=== PATIENT | female | born 1935 | race Caucasian/White ===

== ENCOUNTER 2016-08-03 21:09 | Inpatient (IN) | payer OTHER ==
--- NOTE | 2016-08-03 21:13 | PDOC ---
History of Present Illness - General History Source: Patient, Family Exam Limitations: No Limitations <Ynes Carrera - Last Filed: 08/04/16 00:51> - General History Source: Patient, Family Exam Limitations: Other - History of Present Illness Initial Comments: 08/03/16 21:42 The patient is a 81 year old female living at home with daughter, with a significant past medical history of dementia hemorrhoids, diverticulosis, rectal bleeds, and prolapsed uterus, who presents to the emergency department complaining s/p mechanical fall at approximately 10:30 this morning. Patients daughter reports she was downstairs in their home, when suddenly she heard a thump, which sounded like something had fallen. Daughter reports going upstairs and finding patient on the floor. Daughter asked patient what happened, at which point she said I fell. Patient did not report any head trauma or LOC. Daughter states she offered her mother assistance to get up from the floor, but the patient refused her at least 3 times. Daughter reports leaving at this time , because she thought the patient would get up on her own. When daughter returned at approximately 19:00 the patient was still on the ground, but had reversed her direction on the floor. At this time the daughter called their neighbors, who suggested calling EMS. Daughter states the patient has been increasingly sleepy, cold, and no longer wants to speak indonesian. She reports the patient was at an all day prayer yesterday and did not exhibit any symptoms of sleepiness of lethargy. She reports the patient is typically able to ambulate on her own, however, during the last 3 days she has noticed some leg swelling. The patient denies any chest pain, shortness of breath, diaphoresis, or palpitations. Daughter reports increased frequency, but denies dysuria or hematuria. The patient denies any fever, cough, headache, or dizziness. The patient denies any nausea, vomiting, diarrhea, or constipation. The patient denies any recent travel or sick contacts. Allergies: NKDA Past Surgical History: Appendectomy Social History: Non-smoker. Denies alcohol or drug use. PCP: Dr. Lyons <David Tineo - Last Filed: 08/04/16 01:28> - General Chief Complaint: Injury Stated Complaint: FALL Time Seen by Provider: 08/03/16 21:12 Past History - Surgical History Appendectomy: Yes Cholecystectomy: Yes - Psycho/Social/Smoking Cessation Hx Anxiety: No Suicidal Ideation: No Smoking Status: No Smoking History: Never smoked Number of Cigarettes Smoked Daily: 0 Hx Alcohol Use: No <Ynes Carrera - Last Filed: 08/04/16 00:51> <David Tineo - Last Filed: 08/04/16 01:28> - Past Medical History Allergies/Adverse Reactions: Allergies Allergy/AdvReac Type Severity Reaction Status Date / Time No Known Allergies Allergy Verified 08/03/16 21:25 Home Medications: Ambulatory Orders NK [No Known Home Medication] 03/31/14 Review of Systems - Review of Systems Able to Perform ROS?: Yes Comments:: 08/03/16 21:43 GENERAL/CONSTITUTIONAL: Yes: +Chills, +weakness, +sleepy. No: fever, loss of appetite. HEAD, EYES, EARS, NOSE AND THROAT: No: change in vision, ear pain, discharge, sore throat, throat swelling. CARDIOVASCULAR: No: chest pain, lightheadedness, palpitations, syncope RESPIRATORY: No: cough, shortness of breath, wheezing, hemoptysis, stridor. GASTROINTESTINAL: No: nausea, vomiting, abdominal cramping, diarrhea, rectal bleeding, constipation. GENITOURINARY: Yes: +Frequency. No: dysuria, hematuria, urgency, flank pain. MUSCULOSKELETAL: Yes: +leg swelling. No: back pain, neck pain, joint pain. SKIN AND BREASTS: No: lesions, pallor, rash or easy bruising. NEUROLOGIC: No: headache, vertigo, paresthesias ENDOCRINE: No: unexplained weight gain or loss HEMATOLOGIC/LYMPHATIC: No: anemia, easy bleeding, swelling nodes <David Tineo - Last Filed: 08/04/16 01:28> *Physical Exam - Vital Signs Last Vital Signs Temp Pulse Resp BP Pulse Ox 98 F 72 16 168/83 98 08/03/16 21:12 08/03/16 21:12 08/03/16 21:12 08/03/16 21:12 08/03/16 21:12 - Physical Exam Comments: 08/03/16 21:31 GENERAL: Alert and Oriented x1. Sleepy HEAD: Normal with no signs of trauma. EYES: Left pupil 2mm. Right pupil 1 mm. EOMI, sclera anicteric, conjunctiva clear. ENT: Ears normal, nares patent, oropharynx clear without exudates. Moist mucous membranes. NECK: Normal range of motion, supple without lymphadenopathy, JVD, or masses. LUNGS: Breath sounds equal, clear to auscultation bilaterally. No wheezes, and no crackles. HEART: Regular rate and rhythm, normal S1 and S2 without murmur, rub or gallop. ABDOMEN: Soft, nontender, normoactive bowel sounds. No guarding, no rebound. PELVIC: Uterine prolapse. EXTREMITIES: Normal range of motion, no edema. No clubbing or cyanosis. No erythema, or tenderness. NEUROLOGICAL: Cranial nerves II through XII grossly intact. Normal speech. No focal neurological deficits. MUSCULOSKELETAL: Left hip tenderness. No CVA tenderness, no midline cervical spine tenderness. SKIN: Warm, Dry, normal turgor, no rashes or lesions noted. <David Tineo - Last Filed: 08/04/16 01:28> Heart Score/ECG Review #1 ECG reviewed & interpreted by me at: 00:07 08/04/16 00:07 Twelve-lead EKG was performed and reviewed by me. Junctional, rate of 69 bpm. The axis is normal. The intervals are normal - QRS:76ms, QTc:430ms. There are no ST or T wave abnormalities. <Ynes Carrera - Last Filed: 08/04/16 00:51> ED Treatment Course - LABORATORY CBC & Chemistry Diagram: 08/03/16 21:39 08/03/16 21:39 <Ynes Carrera - Last Filed: 08/04/16 00:51> - LABORATORY CBC & Chemistry Diagram: 08/03/16 21:39 08/03/16 21:39 - RADIOLOGY Radiograph Interpretation: 08/03/16 23:49 EXAM: Head CT INTERPRETED BY: Dr. Barcenas REVIEWED BY: Dr. Carrera IMPRESSION: Age related involutional changes. Chronic microvascular changes in the cerebral white matter. No hemorrhage. No mass. No visible acute infarct Osseous structures are intact. EXAM: CT Cervical spine INTERPRETED BY: Dr. Barcenas REVIEWED BY: Dr. Carrera IMPRESSION: Degenerative changes. Negative for cervical fracture or malalignment. EXAM: X-Ray hip and pelvis INTERPRETED BY: Dr. Ferrer REVIEWED BY: Dr. Carrera IMPRESSION: Osteopenia is noted. No fractures are seen in the visualized femur or acetabulum. 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 No other pelvic fracture is identified. Calcified fibroids are noted <David Tineo - Last Filed: 08/04/16 01:28> Medical Decision Making - Medical Decision Making 08/03/16 21:13 A portion of this note was documented by scribe services under my direction. I have reviewed the details of the note, within reason, and agree with the documentation with the following case summary and management plan written by me. Nursing documentation reviewed and incorporated into medical decision making 08/03/16 22:23 This is a relatively healthy 81-year-old female presents emergency department by EMS status post a fall at home. Patient is typically ambulatory, lives with her daughter at home. This morning at approximately 10 or 10:30 she had an unwitnessed fall onto the ground. Patient's daughter attempted 3 times to pick her up but was unsuccessful. She left the house at approximately 7 PM and when she returned later in the evening she found her mom still on the ground. She called for assistance from her neighbors who did not feel comfortable picking her up and told her to call EMS. On examination: Pt A&O x 1 Pt is somnolent. Arousable to questioning but does not answer clearly Pain with movement of bother the left and right hips (she is unable to do so independently) RRR Lungs are clear Laboratory Tests 08/03/16 08/03/16 21:39 21:39 WBC 10.7 H D Hgb 11.6 Hct 35.8 Plt Count 307 Neutrophils % 76.2 Lymphocytes % 13.2 D Urine Blood 1+ H Urine Nitrite Negative Ur Leukocyte Esterase Negative (UA obtained via straight cath) 08/03/16 22:50 Laboratory Tests 08/03/16 21:39 Sodium 144 Potassium 4.7 Chloride 109 H Carbon Dioxide 27 Creatinine 1.5 H D Random Glucose 98 Creatine Kinase 227 H Troponin I < 0.02 08/04/16 00:51 CT: Head negative Cervical spine CT: Negative X-rays hip negative for fracture Upon reassessment, patient very somnolent. Patient awakens briefly with verbal stimulation but then falls back asleep. Per daughter this is not normal for her. Case reviewed with Dr. Yanez. Will place on T-VIPS. <Ynes Carrera - Last Filed: 08/04/16 00:51> - Medical Decision Making 08/03/16 23:58 First call placed to Dr. Ynaez at 23:58. Awaiting call back. Second call placed to Dr. Yanez at 00:33. Awaiting call back. Case discussed with Dr. Yanez at 00:46. <David Tineo - Last Filed: 08/04/16 01:28> *DC/Admit/Observation/Transfer - Discharge Dispostion Admit: Yes <Ynes Carrera - Last Filed: 08/04/16 00:51> <David Tineo - Last Filed: 08/04/16 01:28> Diagnosis at time of Disposition: Weakness, Somnolence Fall Qualifiers: Encounter type: initial encounter Qualified Code(s): W19.XXXA - Unspecified fall, initial encounter - Discharge Dispostion Condition at time of disposition: Stable - Referrals Referrals: Daniel Lyons MD [Primary Care Provider] -
[2016-08-03 22:06] LABS: BASOPHIL 0.8 % (0-2.0); EOSINOPHIL 0.9 % (0-4.5); MCH 25.7 pg (25.7-33.7); MCHC 32.5 g/dl (32.0-36.0); MEAN CELL VOLUME 79.3 fl (80-96); MEAN PLT VOLUME 9.2 fl (7.5-11.1); NEUTROPHILS 76.2 % (42.8-82.8); PLATELET COUNT 307 K/MM3 (134-434); RDW 14.6 % (11.6-15.6); WHITE BLOOD COUNT 10.7 K/mm3 (4.0-10.0)
[2016-08-03 22:08] LABS: URINE APPEARANCE CLEAR; URINE BILIRUBIN NEGATIVE (NEGATIVE); URINE COLOR STRAW; URINE GLUCOSE (UA) NEGATIVE (NEGATIVE); URINE KETONE NEGATIVE (NEGATIVE); URINE LEUK ESTERASE NEGATIVE (NEGATIVE); URINE NITRITE NEGATIVE (NEGATIVE); URINE PROTEIN NEGATIVE (NEGATIVE); URINE UROBILINOGEN NEGATIVE E.U./dl (0.2-1.0)
[2016-08-03 22:09] LABS: URINE BLOOD 1+ (NEGATIVE)
[2016-08-03 22:10] LABS: URINE MUCUS RARE; URINE RBC 1 /hpf (0-3); URINE WBC 2 /hpf (3-5)
[2016-08-03 22:36] LABS: ALBUMIN 3.9 g/dl (3.4-5.0); ANION GAP 8 (8-16); BILIRUBIN,TOTAL 0.7 mg/dL (0.2-1.0); CO2 27 mmol/L (21-32); CREATININE 1.5 mg/dL (0.55-1.02); GLUCOSE,RANDOM 98 mg/dL (74-106); SGPT/ALT 22 U/L (12-78); TOT PROT 7.7 g/dl (6.4-8.2)
[2016-08-03 22:39] LABS: ALK PHOS 120 U/L (45-117); TROPONIN I < 0.02 ng/ml (0.00-0.05)
[2016-08-03 22:41] LABS: MAGNESIUM 2.1 mg/dL (1.8-2.4); SGOT/AST 25 U/L (15-37)
[2016-08-04 02:25] VITALS: BMI 26.3
[2016-08-04] MEDS ORDERED: ACETAMINOPHEN 325 MG TABLET (FP) PO PRN (06:08)
--- NOTE | 2016-08-04 12:13 | HP ---
Admitting History and Physical - Primary Care Physician PCP: Daniel Lyons - Admission Chief Complaint: fall History of Present Illness: The patient is a 81 year old female living at home with daughter, with a significant past medical history of dementia,--daughter dont want to acknowledge but admits pts forgets/ ferrell-- hemorrhoids, diverticulosis, rectal bleeds, and prolapsed uterus, who presents to the emergency department complaining s/p mechanical fall at approximately 10:30 yesterday morning. Patients daughter reports she was downstairs in their home, when suddenly she heard a thump, which sounded like something had fallen. Daughter reports going upstairs and finding patient on the floor. Daughter asked patient what happened , at which point she said I fell. Patient did not report any head trauma or LOC. Daughter states she offered her mother assistance to get up from the floor , but the patient refused her at least 3 times. Daughter reports then leaving at this time, because she thought the patient would get up on her own. When daughter returned at approximately 19:00 the patient was still on the ground, but had reversed her direction on the floor. At this time the daughter called their neighbors, who suggested calling EMS. Daughter states the patient has been increasingly sleepy, cold, and no longer wants to speak vietnamese. She reports the patient was at an all day prayer yesterday and did not exhibit any symptoms of sleepiness of lethargy. She reports the patient is typically able to ambulate on her own, however, during the last 3 days she has noticed some leg swelling. The patient denies any chest pain, shortness of breath, diaphoresis, or palpitations. Daughter reports increased frequency, but denies dysuria or hematuria. The patient denies any fever, cough, headache, or dizziness. The patient denies any nausea, vomiting, diarrhea, or constipation. The patient denies any recent travel or sick contacts. Allergies: NKDA Past Surgical History: Appendectomy Social History: Non-smoker. Denies alcohol or drug use. PCP: Dr. Lyons work up was -ve for fracture . pt admitted as she was weak/ unable to ambulated Pt seen today/ daughter at bedside pt sleepy but arousable Not engaging in discussion but says feels ok. poor historian all h/o from her daughter. daughter also acknowledges that she did not see her pmd for more than year. 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 - Advance Directives Advance Directives: Yes: Health Care Proxy - Smoking History Smoking history: Never smoked Have you smoked in the past 12 months: No Aproximately how many cigarettes per day: 0 - Alcohol/Substance Use Hx Alcohol Use: No Home Medications - Allergies Allergies/Adverse Reactions: Allergies Allergy/AdvReac Type Severity Reaction Status Date / Time No Known Allergies Allergy Verified 08/03/16 21:25 - Home Medications Home Medications: Ambulatory Orders NK [No Known Home Medication] 03/31/14 Review of Systems Unable to obtain ROS, reason: see [place] Physical Examination Vital Signs: Vital Signs Temperature 98.0 F 08/04/16 06:00 Pulse Rate 73 08/04/16 06:00 Respiratory Rate 16 08/04/16 06:00 Blood Pressure 118/44 08/04/16 06:00 O2 Sat by Pulse Oximetry (%) 97 08/04/16 01:12 Constitutional: Yes: No Distress, Calm Eyes: Yes: Conjunctiva Clear, PERRL HENT: Yes: WNL Neck: Yes: Supple, Trachea Midline Cardiovascular: Yes: Regular Rate and Rhythm Respiratory: Yes: CTA Bilaterally Gastrointestinal: Yes: Normal Bowel Sounds, Soft Edema: No Imaging - Results Chest X-ray: Report Reviewed X-ray: Report Reviewed Cat Scan: Pending Problem List - Problems (1) Fall Code(s): W19.XXXA - UNSPECIFIED FALL, INITIAL ENCOUNTER Qualifiers: Encounter type: initial encounter Qualified Code(s): W19.XXXA - Unspecified fall, initial encounter (2) Somnolence Code(s): R40.0 - SOMNOLENCE (3) Weakness Code(s): R53.1 - WEAKNESS Assessment/Plan Mild hydration. f/u labs Physical therapy tylenol for pain. will follow check b12/ tsh level etc will follow check u/s carotid discussed with pts daughter
[2016-08-04] MEDS: D5-1/2NS+20 MEQ KCL - 1,000 ML IV SCH (12:29)
--- NOTE | 2016-08-04 17:26 | CONSULT ---
Consult - text type - Consultation Consultation Note: This 81 yo RH woman apparently lives with daughter. Known h/o "dementia" but no available background history and apparently no meds. Yesterday, daughter found patient on the ground at 10:30 in the morning and claims she refused to get up. She reurned 8 1/2 hours later to find her still on the floor but now "cold and confused" and called EMS. In ER WBC= 10.7. Afebrile. Dehydrated. Sl increased CK. CT of head (reviewed): Diffuse atrophy and microvascular changes. CT of C-spine (reviewed): Mod, diffuse DJD. 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 No carotid bruits. Cor: Reg. - John's. Legs diffusely tender to touch. NEURO: Lethargic but awakens to name. O x "home." Age 50. No month or year, + Glabella, snout. Speech: sparse but fluent CN II-XII: normal. Gag fine. Motor: Sl rigid tone (Legs> arms) with minimal cogwheeling. No drift. Normal strength. Brisk reflexes except AJ's. Plantars equivocal. Coord: No obvious FTN dystaxia Sensory: Withdraws all fours briskly to sharp. Gait: Pt spontaneously retropulses in bed. IMP: Moderately severe, B/L cerebral dysfunction (OMS/ Chronic) most likely Alzheimer's Disease (AD). Senile Gait apraxia +/- contribution from Cervical Myelopathy. R/o exacerbation due to toxic-metabolic factors, gabo infection. This patient is essentially Non-ambulatory and needs full assist with all ADL's (including feeding.) SUGGEST: Check B12, TSH, T4, RPR. R/O occult infection Start donepezil 5 mg PO after breakfast. social human services assistants. PT for gait assessment and training with walker. Thank you very much, Trey Oh MD
--- NOTE | 2016-08-04 22:30 | EKG ---
Test Reason : Blood Pressure : / mmHG Vent. Rate : 069 BPM Atrial Rate : 063 BPM P-R Int : 000 ms QRS Dur : 076 ms QT Int : 402 ms P-R-T Axes : 000 -19 026 degrees QTc Int : 430 ms POOR DATA QUALITY, INTERPRETATION MAY BE ADVERSELY AFFECTED Sinus bradycardia; r/o junctional rhythm. ABNORMAL ECG NO PREVIOUS ECGS AVAILABLE Confirmed by CLEMENTE QUINTEROS MD ([id number]) on 08/04/2016 10:30:05 PM Referred By: Confirmed By:CLEMENTE QUINTEROS MD
[2016-08-05] MEDS: D5-1/2NS+20 MEQ KCL - 1,000 ML IV SCH ×2 (05:15→23:33)
[2016-08-05 08:32] LABS: ALBUMIN 3.2 g/dl (3.4-5.0); MAGNESIUM 1.9 mg/dL (1.8-2.4)
[2016-08-05 08:38] LABS: BASOPHIL 0.6 % (0-2.0); MCH 25.4 pg (25.7-33.7); MCHC 31.7 g/dl (32.0-36.0); MEAN CELL VOLUME 80.3 fl (80-96); MEAN PLT VOLUME 9.3 fl (7.5-11.1); NEUTROPHILS 77.7 % (42.8-82.8); PLATELET COUNT 269 K/MM3 (134-434); RDW 14.7 % (11.6-15.6); WHITE BLOOD COUNT 8.9 K/mm3 (4.0-10.0)
[2016-08-05 08:46] LABS: BILIRUBIN,TOTAL 0.9 mg/dL (0.2-1.0); CREATININE 1.5 mg/dL (0.55-1.02); THYROID STIMULATING HORMONE 4.53 uIU/ml (0.358-3.74); TOT PROT 6.4 g/dl (6.4-8.2)
--- NOTE | 2016-08-05 10:26 | PN ---
Progress Note (short form) - Note Progress Note: Subjective Patient seen and examined. Laying in bed. No distress. Denies pain. Not cooperative in discussion-- withdrawal effect. Neuro consult noted and appreciated. Patient refused PT. Refusing echocardiogram. Keeps saying shes "OK". Objective Last Vital Signs Temp Pulse Resp BP Pulse Ox 98 F 69 18 141/69 96 08/05/16 07:41 08/05/16 07:41 08/05/16 07:41 08/05/16 07:41 08/04/16 21:00 CBC, BMP 08/05/16 07:00 08/05/16 07:00 Laboratory Results - last 24 hr 08/05/16 08/05/16 08/05/16 07:00 07:00 07:00 WBC 8.9 RBC 4.16 Hgb 10.6 L Hct 33.4 MCV 80.3 MCHC 31.7 L RDW 14.7 Plt Count 269 MPV 9.3 Neutrophils % 77.7 Lymphocytes % 11.7 Monocytes % 8.0 Eosinophils % 2.0 D Basophils % 0.6 Sodium 142 Potassium 4.4 Chloride 109 H Carbon Dioxide 23 Anion Gap 10 BUN 24 H Creatinine 1.5 H Creat Clearance w eGFR 33.33 Random Glucose 139 H D Calcium 8.0 L Magnesium 1.9 Total Bilirubin 0.9 D AST 24 ALT 20 Alkaline Phosphatase 102 B-Natriuretic Peptide 579.63 H Total Protein 6.4 Albumin 3.2 L Vitamin B12 592 TSH 4.53 H Physical Exam Constitutional: Yes: No Distress, Calm Eyes: Yes: Conjunctiva Clear, PERRL HENT: Yes: WNL Neck: Yes: Supple, Trachea Midline Cardiovascular: Yes: Regular Rate and Rhythm Respiratory: Yes: CTA Bilaterally Gastrointestinal: Yes: Normal Bowel Sounds, Soft Edema: No Assessment and Plan Mild hydration. f/u labs Physical therapy tylenol for pain. will follow Check Free T4 check u/s carotid Patient advised to go to PT and further testing as needed. Will start on Aricept. Will follow. Cardiology consult also pending. Documentation prepared by Landy Valdes, acting as a medical diagnostic radiographer for Becky Yanez MD. <Landy Valdes - Last Filed: 08/05/16 10:49> Problem List - Problems (1) Fall Code(s): W19.XXXA - UNSPECIFIED FALL, INITIAL ENCOUNTER Qualifiers: Encounter type: initial encounter Qualified Code(s): W19.XXXA - Unspecified fall, initial encounter (2) Somnolence Code(s): R40.0 - SOMNOLENCE (3) Weakness Code(s): R53.1 - WEAKNESS <Becky Yanez - Last Filed: 08/05/16 10:26> - Problems (1) Dementia Code(s): F03.90 - UNSPECIFIED DEMENTIA WITHOUT BEHAVIORAL DISTURBANCE <Landy Valdes - Last Filed: 08/05/16 10:49>
[2016-08-05 11:32] LABS: FREE T4 0.96 ng/dl (0.76-1.46)
--- NOTE | 2016-08-05 12:31 | EKG ---
Test Reason : Blood Pressure : / mmHG Vent. Rate : 069 BPM Atrial Rate : 069 BPM P-R Int : 138 ms QRS Dur : 084 ms QT Int : 368 ms P-R-T Axes : 044 -25 016 degrees QTc Int : 394 ms NORMAL SINUS RHYTHM NORMAL ECG WHEN COMPARED WITH ECG OF 03-AUG-2016 22:06, NO SIGNIFICANT CHANGE WAS FOUND Confirmed by PAMELA HE MD ([id number]) on 08/05/2016 12:31:20 PM Referred By: BRUCE JORGENSEN Confirmed By:PAMELA HE MD
--- NOTE | 2016-08-05 15:36 | CON.CARD ---
Consult Consult Specialty:: Cardiology Referred by:: Dr. Yanez (patient of Dr. 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 History was obtained by daughter as noted in the ER note. Patient was found on the floor by her daughter and patient knew she had fallen. There appears to be no LOC or head trauma. She was left on the floor since patient wanted to be in that position. Finally EMS was called as patient appeared somnolent. Currently, she is awake and is able to answer simple questions. She denies chest pain, shortness of breath or palpitations. She denies paroxysmal nocturnal dyspnea or orthopnea. She denies fever or chills. She denies headache or lightheadedness. Cardiology consultation was called for further evaluation. 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 Gastrointestinal: Yes: Diverticulosis - Alcohol/Substance Use Hx Alcohol Use: No - Smoking History Smoking history: Never smoked Have you smoked in the past 12 months: No Aproximately how many cigarettes per day: 0 Home Medications - Allergies Allergies/Adverse Reactions: Allergies Allergy/AdvReac Type Severity Reaction Status Date / Time No Known Allergies Allergy Verified 08/03/16 21:25 - Home Medications Home Medications: Ambulatory Orders NK [No Known Home Medication] 03/31/14 Family Disease History - Family Disease History Family History: Unable to Obtain Review of Systems - Review of Systems Constitutional: denies: Chills, Fever Cardiovascular: denies: Chest Pain, Palpitations, Shortness of Breath Respiratory: denies: Cough, Hemoptysis, Orthopnea, PND, SOB, SOB on Exertion Gastrointestinal: denies: Abdominal Pain, Constipation, Diarrhea, Melena, Nausea , Rectal Bleeding, Vomiting Genitourinary: denies: Dysuria Neurological: denies: Dizziness, Headache, Seizure, Syncope Vital Signs: Vital Signs Temperature 99.4 F 08/05/16 13:51 Pulse Rate 83 08/05/16 13:51 Respiratory Rate 18 08/05/16 07:41 Blood Pressure 143/70 08/05/16 13:51 O2 Sat by Pulse Oximetry (%) 96 08/04/16 21:00 Neck: Yes: Supple Respiratory: Yes: Diminished Gastrointestinal: Yes: Normal Bowel Sounds, Soft. No: Tenderness Cardiovascular: Yes: Regular Rate and Rhythm JVD: No Carotid Bruit: No PMI: Non-Displaced Heart Sounds: Yes: S1, S2 Murmur: No: Systolic Murmur, Diastolic Murmur Edema: No - Other Data Labs, Other Data: CBC, BMP 08/05/16 07:00 08/05/16 07:00 Troponin, BNP 08/05/16 07:00 B-Natriuretic Peptide 579.63 H Laboratory Results - last 24 hr 08/05/16 08/05/16 08/05/16 07:00 07:00 07:00 WBC 8.9 RBC 4.16 Hgb 10.6 L Hct 33.4 MCV 80.3 MCHC 31.7 L RDW 14.7 Plt Count 269 MPV 9.3 Neutrophils % 77.7 Lymphocytes % 11.7 Monocytes % 8.0 Eosinophils % 2.0 D Basophils % 0.6 Sodium 142 Potassium 4.4 Chloride 109 H Carbon Dioxide 23 Anion Gap 10 BUN 24 H Creatinine 1.5 H Creat Clearance w eGFR 33.33 Random Glucose 139 H D Calcium 8.0 L Magnesium 1.9 Total Bilirubin 0.9 D AST 24 ALT 20 Alkaline Phosphatase 102 B-Natriuretic Peptide 579.63 H Total Protein 6.4 Albumin 3.2 L Vitamin B12 592 TSH 4.53 H Free T4 0.96 Normal sinus rhythm with no ST-T abnormality Echo: Report Reviewed (Normal LV systolic function) Problem List - Problems (1) Dementia Code(s): F03.90 - UNSPECIFIED DEMENTIA WITHOUT BEHAVIORAL DISTURBANCE Qualifiers: Dementia type: Alzheimer's disease (2) Fall Code(s): W19.XXXA - UNSPECIFIED FALL, INITIAL ENCOUNTER Qualifiers: Encounter type: initial encounter Qualified Code(s): W19.XXXA - Unspecified fall, initial encounter (3) Weakness Code(s): R53.1 - WEAKNESS Assessment/Plan 1. Mechanical fall with no visible injuries or trauma and no LOC 2. Diverticular disease 3. Organic brain syndrome/Alzheimer's dementia 4. CKD PLAN: 1. Transthoracic echocardiography was reviewed and appears unremarkable 2. Carotid Doppler was unremarkable 3. Neurology input noted 4. No specific cardiac therapy is warranted at this time Further plans are to follow Driss Jones MD
[2016-08-05 21:45] LABS: URINE APPEARANCE SLCLOUDY; URINE BILIRUBIN NEGATIVE (NEGATIVE); URINE COLOR LTYELLOW; URINE GLUCOSE (UA) NEGATIVE (NEGATIVE); URINE KETONE NEGATIVE (NEGATIVE); URINE NITRITE NEGATIVE (NEGATIVE); URINE UROBILINOGEN NEGATIVE E.U./dl (0.2-1.0)
[2016-08-05 22:07] LABS: URINE BLOOD 1+ (NEGATIVE); URINE LEUK ESTERASE 2+ (NEGATIVE); URINE PROTEIN 2+ (NEGATIVE)
[2016-08-05 22:09] LABS: URINE RBC 18 /hpf (0-3); URINE WBC 61 /hpf (3-5); YEAST RARE
[2016-08-06 09:46] LABS: CALCIUM 8.8 mg/dL (8.5-10.1); CREATININE 1.5 mg/dL (0.55-1.02)
[2016-08-06] MEDS: DONEPEZIL HCL 5 MG TABLET (FP) PO SCH (10:55)
--- NOTE | 2016-08-06 11:08 | PN ---
Progress Note, Physician Chief Complaint: Events noted Did not sleep at night , was awake and confused Pulled out her IV line and name band - Current Medication List Current Medications: Active Medications Acetaminophen (Tylenol -) 650 mg PO Q6H PRN PRN Reason: PAIN Last Admin: 08/05/16 01:01 Dose: 650 mg Donepezil HCl (Aricept -) 5 mg PO DAILY [facility] Last Admin: 08/06/16 10:55 Dose: 5 mg Potassium Chloride/Dextrose/Sod Cl (D5-1/2ns+20 Meq Kcl -) 1,000 mls @ 83 mls/ hr IV ASDIR [facility] Last Admin: 08/05/16 23:33 Dose: 83 mls/hr - Objective Vital Signs: Vital Signs Temperature 97.7 F 08/06/16 06:52 Pulse Rate 70 08/06/16 06:52 Respiratory Rate 18 08/06/16 06:52 Blood Pressure 142/77 08/06/16 06:52 O2 Sat by Pulse Oximetry (%) 96 08/05/16 21:00 Constitutional: Yes: No Distress, Other (confused, sleeping) Cardiovascular: Yes: Regular Rate and Rhythm Respiratory: Yes: CTA Bilaterally Gastrointestinal: Yes: Normal Bowel Sounds, Soft. No: Distention, Tenderness Edema: No Labs: CBC, BMP 08/05/16 07:00 08/06/16 07:00 Problem List - Problems (1) Dementia Code(s): F03.90 - UNSPECIFIED DEMENTIA WITHOUT BEHAVIORAL DISTURBANCE Qualifiers: Dementia type: Alzheimer's disease (2) Fall Code(s): W19.XXXA - UNSPECIFIED FALL, INITIAL ENCOUNTER Qualifiers: Encounter type: subsequent encounter Qualified Code(s): W19.XXXD - Unspecified fall, subsequent encounter (3) Weakness Code(s): R53.1 - WEAKNESS (4) CKD (chronic kidney disease) stage 3, GFR 30-59 ml/min Code(s): N18.3 - CHRONIC KIDNEY DISEASE, STAGE 3 (MODERATE) Assessment/Plan PLAN Echo and carotid doppler unremarkable labs good Second UA shows high WBC, LE urine culture pending Will start empiric antibiotics-- PO as she pulled out her iv line DC iv fluids supportive care will need SNF on Aricept
--- NOTE | 2016-08-06 11:30 | PN ---
Progress Note, Physician Chief Complaint: Not in distress History of Present Illness: Patient was seen and examined. Awake but confused. Chart was reviewed Denies chest pain, SOB or palpitations - Current Medication List Current Medications: Active Medications Acetaminophen (Tylenol -) 650 mg PO Q6H PRN PRN Reason: PAIN Last Admin: 08/05/16 01:01 Dose: 650 mg Cephalexin HCl (Keflex -) 250 mg PO Q6HPO JORGE Donepezil HCl (Aricept -) 5 mg PO DAILY [facility] Last Admin: 08/06/16 10:55 Dose: 5 mg Potassium Chloride/Dextrose/Sod Cl (D5-1/2ns+20 Meq Kcl -) 1,000 mls @ 83 mls/ hr IV ASDIR JORGE Last Admin: 08/05/16 23:33 Dose: 83 mls/hr - Objective Vital Signs: Vital Signs Temperature 97.7 F 08/06/16 06:52 Pulse Rate 70 08/06/16 06:52 Respiratory Rate 18 08/06/16 06:52 Blood Pressure 142/77 08/06/16 06:52 O2 Sat by Pulse Oximetry (%) 96 08/05/16 21:00 Neck: Yes: Supple Cardiovascular: Yes: Regular Rate and Rhythm, S1, S2 Respiratory: Yes: CTA Bilaterally Gastrointestinal: Yes: Normal Bowel Sounds, Soft. No: Tenderness Edema: No Labs: CBC, BMP 08/05/16 07:00 08/06/16 07:00 Problem List - Problems (1) Dementia Code(s): F03.90 - UNSPECIFIED DEMENTIA WITHOUT BEHAVIORAL DISTURBANCE Qualifiers: Dementia type: Alzheimer's disease Alzheimer's disease onset: unspecified onset Dementia behavioral disturbance: without behavioral disturbance Qualified Code(s): G30.9 - Alzheimer's disease, unspecified; F02.80 - Dementia in other diseases classified elsewhere without behavioral disturbance (2) Fall Code(s): W19.XXXA - UNSPECIFIED FALL, INITIAL ENCOUNTER Qualifiers: Encounter type: subsequent encounter Qualified Code(s): W19.XXXD - Unspecified fall, subsequent encounter (3) Weakness Code(s): R53.1 - WEAKNESS Assessment/Plan 1. Mechanical fall with no visible injuries or trauma and no LOC 2. Diverticular disease 3. Organic brain syndrome/Alzheimer's dementia 4. CKD PLAN: 1. Transthoracic echocardiography and Carotid Doppler were unremarkable 3. Neurology input noted regarding dementia 4. No specific cardiac therapy is warranted at this time. She will need SNF placement Further plans are to follow Driss Jones MD
[2016-08-06] MEDS: D5-1/2NS+20 MEQ KCL - 1,000 ML IV SCH (13:38)
[2016-08-06] MEDS: CEPHALEXIN MONOHYDRATE 250 MG CAPSULE (FP) PO SCH ×3 (13:39→23:39)
[2016-08-06] MEDS ORDERED: PT OWN MED DRAWER 7, Y5N ONE ×3 (13:43→23:36)
[2016-08-07] MEDS: CEPHALEXIN MONOHYDRATE 250 MG CAPSULE (FP) PO SCH ×3 (05:57→12:21)
[2016-08-07] MEDS: DONEPEZIL HCL 5 MG TABLET (FP) PO SCH (10:42)
[2016-08-07 10:56] VITALS: TEMP 97.9
--- NOTE | 2016-08-07 11:07 | DS ---
Physical Examination Vital Signs: Vital Signs Temperature 97.9 F 08/07/16 09:00 Pulse Rate 64 08/07/16 09:00 Respiratory Rate 20 08/07/16 09:00 Blood Pressure 127/60 08/07/16 09:00 O2 Sat by Pulse Oximetry (%) 95 08/06/16 09:00 Constitutional: Yes: No Distress, Calm Cardiovascular: Yes: Regular Rate and Rhythm Respiratory: Yes: CTA Bilaterally Gastrointestinal: Yes: Normal Bowel Sounds, Soft. No: Distention, Tenderness Edema: No Neurological: Yes: Confusion Labs: CBC, BMP 08/05/16 07:00 08/06/16 07:00 Discharge Summary Reason For Visit: FALL, WEAKNESS, SOMNOLENCE Current Active Problems CKD (chronic kidney disease) stage 3, GFR 30-59 ml/min (Acute) Dementia (Acute) Fall (Acute) Somnolence (Acute) Weakness (Acute) Hospital Course: ER HISTORY - Admission Chief Complaint: fall History of Present Illness: The patient is a 81 year old female living at home with daughter, with a significant past medical history of dementia,--daughter dont want to acknowledge but admits pts forgets/ ferrell-- hemorrhoids, diverticulosis, rectal bleeds, and prolapsed uterus, who presents to the emergency department complaining s/p mechanical fall at approximately 10:30 yesterday morning. Patients daughter reports she was downstairs in their home, when suddenly she heard a thump, which sounded like something had fallen. Daughter reports going upstairs and finding patient on the floor. Daughter asked patient what happened , at which point she said I fell. Patient did not report any head trauma or LOC. Daughter states she offered her mother assistance to get up from the floor , but the patient refused her at least 3 times. Daughter reports then leaving at this time, because she thought the patient would get up on her own. When daughter returned at approximately 19:00 the patient was still on the ground, but had reversed her direction on the floor. At this time the daughter called their neighbors, who suggested calling EMS. Daughter states the patient has been increasingly sleepy, cold, and no longer wants to speak maori. She reports the patient was at an all day prayer yesterday and did not exhibit any symptoms of sleepiness of lethargy. She reports the patient is typically able to ambulate on her own, however, during the last 3 days she has noticed some leg swelling. The patient denies any chest pain, shortness of breath, diaphoresis, or palpitations. Daughter reports increased frequency, but denies dysuria or hematuria. The patient denies any fever, cough, headache, or dizziness. The patient denies any nausea, vomiting, diarrhea, or constipation. The patient denies any recent travel or sick contacts. Allergies: NKDA Past Surgical History: Appendectomy Social History: Non-smoker. Denies alcohol or drug use. PCP: Dr. Lyons work up was -ve for fracture . pt admitted as she was weak/ unable to ambulated Pt seen today/ daughter at bedside pt sleepy but arousable Not engaging in discussion but says feels ok. poor historian all h/o from her daughter. daughter also acknowledges that she did not see her PMD for more than year. HOSPITALIZATION COURSE Pt was seen by Cardiology and Neurology She was started on Aricept-- appears to have Alzheimer's dementia after work up Echo - normal LV function carotid doppler negative No hip fractures UA shows some LE-- started on antibiotics spoke with daughter today-- told her about Aricept and need for it Pt is stable for dc to STR Condition: Stable - Instructions Referrals: Daniel Lyons MD [Primary Care Provider] - Disposition: INTERMEDIATE FACILITY - Home Medications Comprehensive Discharge Medication List: Ambulatory Orders Acetaminophen [Tylenol .Regular Strength -] 650 mg PO Q6H PRN #0 tablet Donepezil HCl [Aricept -] 5 mg PO DAILY #30 tablet 08/07/16
[2016-08-07] MEDS: D5-1/2NS+20 MEQ KCL - 1,000 ML IV SCH (12:21)
[2016-08-07 13:56] VITALS: BP 114/68; PULSE 65
== END 2016-08-07 14:51 | DRG 57 ==
LOC: SUPCPDRO 21:09 → JER 21:09 → JERBED 08-04 01:12 → J6S 08-04 02:15
PROVIDERS: ADMIT Internal Medicine; ATTEND Internal Medicine
DX: G30.9 Alzheimer's disease, unspecified (principal); F02.80 Dementia in other diseases classified elsewhere, unspecified severity, without behavioral disturbance, psychotic disturbance, mood disturbance, and anxiety; R40.0 Somnolence; R53.1 Weakness; F09 Unspecified mental disorder due to known physiological condition; N18.3 Chronic kidney disease, stage 3 (moderate); K57.90 Diverticulosis of intestine, part unspecified, without perforation or abscess without bleeding; N81.4 Uterovaginal prolapse, unspecified
CPT/HCPCS: 36415; 70450-TC; 71010-TC; 72125-TC; 73502-TC-RT; 73523-TC; 80048; 80053; 81003; 81015; 82550; 82553; 82607; 83735; 83880; 84439; 84443; 84484; 85025; 86593; 87086; 87186; 93005; 93010; 93306-TC; 93880-TC; 97116-GP; 99285-25